=== PATIENT | female | born 1965 | race Caucasian/White ===

== ENCOUNTER 2019-11-02 12:35 | Emergency (ER) | payer OTHER ==
[2019-11-02] MEDS ORDERED: Dexamethasone TAB* 4 MG PO ONE (13:50)
[2019-11-02] MEDS ORDERED: Ibuprofen TAB* 800 MG PO ONE (13:50)
--- NOTE | 2019-11-02 13:52 | ED ---
Lower Extremity - HPI Summary HPI Summary: Patient is a 54 y/o F presenting to the ED for a chief complaint of lower back pain for the last 3 weeks. Patient states that she bent over and twisted her back after which her back pain began. Since the injury, she notes the back pain began to radiate to the left lower extremity. Patient reports numbness, paresthesia, and weakness in the left lower extremity. She states her left foot flops when she walks. She is able to bear weight. She rates the pain as 6/10 in severity. Any aggravating factors are denied. She was previously seen at [facility] and was prescribed naproxen and a muscle relaxant. Patient notes some relief with the naproxen. Any significant PMHx is denied. PSHx is significant for hysterectomy. FMHx is significant for hypertension. Patient denies tobacco, alcohol, or drug use. - History of Current Complaint Chief Complaint: EDExtremityLower Stated Complaint: LEFT LEG PAIN/NUMBNESS PER PT Time Seen by Provider: 11/02/19 13:38 Hx Obtained From: Patient Hx Last Menstrual Period: "years ago." Mechanism Of Injury: Twisted Onset of Pain: Immediate Onset/Duration: Weeks Severity Initially: Moderate Severity Currently: Moderate Pain Intensity: 6 Pain Scale Used: 0-10 Numeric Timing: Constant Location: Is Discrete @ - Lower back Associated Signs And Symptoms: Positive: Weakness - Left LE. Negative: Fever Aggravating Factor(s): Nothing Alleviating Factor(s): Nothing Able to Bear Weight: Yes - Allergies/Home Medications Allergies/Adverse Reactions: Allergies Allergy/AdvReac Type Severity Reaction Status Date / Time MS Latex [Latex] Allergy Swelling Verified 01/31/16 08:29 MS Penicillins [Penicillins] Allergy Hives Verified 01/31/16 08:29 PMH/Surg Hx/FS Hx/Imm Hx Previously Healthy: Yes Endocrine/Hematology History: Denies: Hx Diabetes, Hx Thyroid Disease Cardiovascular History: Reports: Hx Hypertension - Patient states that her blood pressure was elevated to 200/xx not on Rx. Denies: Hx Congestive Heart Failure, Hx Deep Vein Thrombosis, Hx Myocardial Infarction, Hx Pacemaker/ICD Respiratory History: Denies: Hx Asthma, Hx Chronic Obstructive Pulmonary Disease (COPD), Hx Lung Cancer, Hx Pneumonia, Hx Pulmonary Embolism GI History: Denies: Hx Gall Bladder Disease, Hx Gastrointestinal Bleed, Hx Ulcer, Hx Urosepsis History: Denies: Hx Kidney Stones, Hx Renal Disease Sensory History: Denies: Hx Legally Blind, Hx Deafness Opthamlomology History: Denies: Hx Legally Blind EENT History: Denies: Hx Deafness Neurological History: Denies: Hx Dementia, Hx Migraine, Hx Seizures, Hx Transient Ischemic Attacks (TIA) Psychiatric History: Reports: Hx Anxiety, Hx Depression - Surgical History Surgical History: Yes Surgery Procedure, Year, and Place: HYSTERECTOMY Infectious Disease History: No Infectious Disease History: Denies: Traveled Outside the [place] in Last 30 Days - Family History Known Family History: Positive: Hypertension - Social History Occupation: Employed Full-time Lives: With Family Alcohol Use: None Hx Substance Use: No Substance Use Type: Reports: None Hx Tobacco Use: Yes Smoking Status (MU): Former Smoker Length of Time of Smoking/Using Tobacco: 2012 Review of Systems Positive: Myalgia - Lower back that radiates to the left lower extremity Positive: Weakness - Left lower extremity, Paresthesia - Left lower extremity, Numbness - Left lower extremity All Other Systems Reviewed And Are Negative: Yes Physical Exam - Summary Physical Exam Summary: VITAL SIGNS: Reviewed. GENERAL: Patient is a well-developed and nourished FEMALE who is lying comfortable in the stretcher. Patient is not in any acute respiratory distress. HEAD AND FACE: No signs of trauma. No ecchymosis, hematomas or skull depressions. No sinus tenderness.. EYES: PERRLA, EOMI x 2, No injected conjunctiva, no nystagmus. EARS: Hearing grossly intact. Ear canals and tympanic membranes are within normal limits. MOUTH: Oropharynx within normal limits. NECK: Supple, trachea is midline, no adenopathy, no JVD, no carotid bruit, no c- spine tenderness, neck with full ROM. CHEST: Symmetric, no tenderness at palpation. LUNGS: Clear to auscultation bilaterally. No wheezing or crackles. CVS: Regular rate and rhythm, S1 and S2 present, no murmurs or gallops appreciated. ABDOMEN: Soft, non-tender. No signs of distention. No rebound, no guarding, and no masses palpated. Bowel sounds are normal. EXTREMITIES: FROM in all major joints, no edema, no cyanosis or clubbing. Ambulating, no weakness in the left leg, positive straight leg test to 45 degreees, left paraspinal tenderness. NEURO: Alert and oriented x 3. No acute neurological deficits. Speech is normal and follows commands. SKIN: Dry and warm. Triage Information Reviewed: Yes Vital Signs On Initial Exam: Initial Vitals Temp Pulse Resp BP Pulse Ox 97.0 F 82 16 153/98 98 11/02/19 12:36 11/02/19 12:36 11/02/19 12:36 11/02/19 12:36 11/02/19 12:36 Vital Signs Reviewed: Yes Procedures - Sedation Patient Received Moderate/Deep Sedation with Procedure: No Diagnostics - Vital Signs Vital Signs Temp Pulse Resp BP Pulse Ox 11/02/19 12:36 97.0 F 82 16 153/98 98 - Laboratory Lab Statement: Any lab studies that have been ordered have been reviewed, and results considered in the medical decision making process. - Radiology Lumbar X-ray Radiology Interpretation Completed By: Radiologist Summary of Radiographic Findings: Lumbar Spine X-ray IMPRESSION: OSTEOPENIA. DEGENERATIVE DISC DISEASE AND OSTEOARTHRITIS. SPONDYLOLISTHESIS. Reviewed by Dr. Farrell. Lower Extremity Course/Dx - Course Assessment/Plan: Patient is a 54 y/o F presenting to the ED for a chief complaint of lower back pain for the last 3 weeks. Patient states that she bent over and twisted her back after which her back pain began. Since the injury , she notes the back pain began to radiate to the left lower extremity. Patient reports numbness, paresthesia, and weakness in the left lower extremity. She states her left foot flops when she walks. She is able to bear weight. She rates the pain as 6/10 in severity. Any aggravating factors are denied. She was previously seen at [facility] and was prescribed naproxen and a muscle relaxant. Patient notes some relief with the naproxen. Any significant PMHx is denied. PSHx is significant for hysterectomy. FMHx is significant for hypertension. Patient denies tobacco, alcohol, or drug use. Lumbar spine x-ray impression: Osteopenia. Degenerative disc disease and osteoarthritis. Spondylolisthesis. In the ED course, the patient was given Decadron and ibuprofen with improvement in her symptoms. The patient is ambulating without any difficulty. Pain is minimal. The patient does have any fever, denies any history of cancer, and denies any drug use. Therefore, the patient will be discharged home to follow-up with her primary care physician within 2-3 days. - Diagnoses Differential Diagnosis/HQI/PQRI: Positive: Bursitis, Contusion, Fracture (Closed ), Sprain, Strain Provider Diagnoses: Sciatica Discharge ED - Sign-Out/Discharge Documenting (check all that apply): Patient Departure - Discharge - Discharge Plan Condition: Stable Disposition: HOME Prescriptions: Cyclobenzaprine TAB* [Flexeril 10 MG TAB*] 10 mg PO TID PRN #12 tab PRN Reason: Spasms - Muscle methylPREDNISolone [Medrol Dosepak 4 MG*] 0 mg PO .SEE MARLI INSTRUCTION #1 marli Naproxen [Naproxen 500 mg tab] 500 mg PO BID #20 tablet Patient Education Materials: Sciatica (ED) Referrals: Francine Amador NP [Primary Care Provider] - Additional Instructions: FOLLOW UP WITH YOUR PRIMARY CARE PROVIDER WITHIN 3 DAYS. RETURN TO THE EMERGENCY DEPARTMENT FOR ANY WORSENING OR NEW SYMPTOMS. - Billing Disposition and Condition Condition: STABLE Disposition: Home - Attestation Statements Document Initiated by Scribe: Yes Documenting Scribe: Gemma Jefferson Provider For Whom Corey is Documenting (Include Credential): Pedro Farrell MD Scribe Attestation: Gemma Wells, faridaibed for Pedro Farrell MD on 11/02/19 at 1840. Scribe Documentation Reviewed: Yes Provider Attestation: The documentation as recorded by the Gemma perez accurately reflects the service I personally performed and the decisions made by , Pedro Farrell MD Status of Scribe Document: Viewed
[2019-11-02 15:42] VITALS: BP 105/79
== END 2019-11-02 15:35 | disposition home or self-care (01) ==
LOC: ED 12:35
DX: M54.30 Sciatica, unspecified side (principal); M51.36 Other intervertebral disc degeneration, lumbar region; I10 Essential (primary) hypertension; Z87.891 Personal history of nicotine dependence; Z90.710 Acquired absence of both cervix and uterus; Z88.0 Allergy status to penicillin; Z91.040 Latex allergy status
CPT/HCPCS: 72100; 99282; A9270-GY; J8540